=== PATIENT | male | born 1975 | race Caucasian/White ===

== ENCOUNTER 2019-02-26 11:30 | Emergency (ER) | payer BC ==
[~2019-02-26] VITALS: Ht 165.1 cm; Wt 108.9 kg
[2019-02-26 12:16] LABS: ABSOLUTE NEUTROPHILS 12.5 thou/uL (1.4-8.2); BASOPHILS 0.5 % (0.0-2.0); HEMATOCRIT 45.7 % (42.0-52.0); HEMOGLOBIN 15.2 gm/dL (14.0-18.0); LYMPHOCYTES 8.5 % (24.0-44.0); MCH 29.1 pg (26.0-34.0); MCHC 33.3 g/dL (28.0-37.0); MCV 87.5 fL (80.0-100.0); MONOCYTES 3.9 % (1.0-8.0); PLATELET COUNT 292 thou/uL (150-400); POLYS 87.1 % (36.0-66.0); RBC 5.22 mil/uL (4.50-6.00); RDW 12.9 % (10.5-14.5); WBC 14.4 thou/uL (4.0-11.0)
[2019-02-26 12:21] LABS: CREATININE 1.5 mg/dL (0.7-1.3)
[2019-02-26 12:22] LABS: POTASSIUM 4.7 mmol/L (3.5-5.1)
[2019-02-26 12:28] LABS: ALBUMIN 4.4 g/dL (3.4-5.0); TOTAL BILIRUBIN 0.6 mg/dL (<0.1-1.0); TOTAL PROTEIN 8.6 g/dL (6.4-8.2)
[2019-02-26 12:54] LABS: URINE BILIRUBIN NEGATIVE (Negative); URINE BLOOD TRACE (Negative); URINE CLARITY CLEAR; URINE COLOR YELLOW; URINE GLUCOSE-RANDOM* NEGATIVE (Negative); URINE KETONES NEGATIVE (Negative); URINE LEUKOCYTES-REFLEX NEGATIVE (Negative); URINE NITRITE-REFLEX NEGATIVE (Negative); URINE PROTEIN (DIPSTICK) NEGATIVE (Negative); URINE UROBILINOGEN 0.2 E.U./dl (0.2-1.0)
[2019-02-26] MEDS ORDERED: NORCO 5-325 TA1 EAC1 PO (13:40)
[2019-02-26] MEDS ORDERED: ONDANSETRON HCL4 M2 PO (13:40)
[2019-02-26] MEDS ORDERED: IBUPROFEN 600600 M1 PO (13:50)
[2019-02-26 14:13] VITALS: BP 173/110
== END 2019-02-26 14:13 | disposition home or self-care (01) ==
LOC: ER 11:30
PROVIDERS: Physician Assistant
DX: N20.1 Calculus of ureter (principal); R10.32 Left lower quadrant pain; I10 Essential (primary) hypertension; F17.210 Nicotine dependence, cigarettes, uncomplicated